=== PATIENT | female | born 1980 | race Caucasian/White ===

== ENCOUNTER 2021-03-22 17:12 | Inpatient (IN) | payer BC, SELFPAY ==
[2021-03-22] MEDS ORDERED: Norepinephrine 8 MG in Dextrose 5% in Water 242 ML IVPB PRN (17:45)
[2021-03-22] MEDS ORDERED: Lidocaine 1% w/Epinephrine 1:100K 20 ML VIAL ONE (18:19)
[2021-03-22] MEDS ORDERED: Bupivacaine PF 0.5% 30 ML VIAL ONE (18:19)
[2021-03-22] MEDS ORDERED: Vancomycin 1 GM/200 ML BAG ONE (18:39)
[2021-03-22] MEDS ORDERED: Fentanyl 100 MCG/2 ML VIAL ONE (18:56)
[2021-03-22] MEDS ORDERED: Succinylcholine 200 MG/10 ml SYRINGE FS ONE (19:24)
[2021-03-22] MEDS ORDERED: Rocuronium Bromide 10 MG/ML (10ML VIAL) ONE (19:24)
[2021-03-22] MEDS ORDERED: Ondansetron PF 4 MG/2 ML Vial ONE (19:24)
[2021-03-22] MEDS ORDERED: SUGAMMADEX SODIUM 200 MG/2 ML VIAL ONE (20:08)
[2021-03-22] MEDS ORDERED: Dextrose 5% in Water 1,000 ML IV PRN (20:39)
[2021-03-22] MEDS ORDERED: Ondansetron PF 4 MG/2 ML Vial IVP PRN (20:39)
[2021-03-22] MEDS ORDERED: Promethazine HCl 25 MG/ML VIAL IM PRN (20:39)
[2021-03-22] MEDS ORDERED: HYDROcodone/Acetaminophen 10/325 mg Tablet PO PRN ×2 (20:39)
[2021-03-22] MEDS ORDERED: Dextrose 50% Abboject 50 ML SYRINGE SLOW IVP PRN (20:39)
[2021-03-22] MEDS ORDERED: Morphine 4 MG/ML VIAL SLOW IVP PRN ×2 (20:39→20:46)
[2021-03-22] MEDS ORDERED: hydrALAZINE 20 MG/ML VIAL SLOW IVP PRN (20:39)
[2021-03-22] MEDS ORDERED: Levofloxacin 500 mg/D5W 100 ml Premix Bag IVPB SCH (21:00)
[2021-03-22] MEDS: Lactated Ringer's 1,000 ML IV SCH (22:12)
[2021-03-22] MEDS: Famotidine/PF 20 mg/2ml Vial SLOW IVP SCH (22:13)
[2021-03-22 22:14] VITALS: BMI 34.7
[2021-03-22] MEDS: Famotidine 20 MG TAB PO SCH (22:33)
[2021-03-22] MEDS: Ketorolac Tromethamine 30 MG/ML VIAL IVP SCH (23:24)
[2021-03-23] MEDS ORDERED: Pramipexole Di-HCl 1 MG TAB PO SCH ×2 (01:45→21:00)
[2021-03-23 05:27] LABS: #Eosinphils 0.1 thou/uL (0.0-0.7); #Lymphocytes 2.7 thou/uL (1.20-3.40); #Neutrophils 7.8 thou/uL (1.40-6.50); %Basophils 0.2 % (0.0-1.0); %Eosinophils 1.1 % (0.0-10.0); %Monocytes 8.5 % (0.0-10.0); %Neutrophils 67.2 % (42.0-75.0); Hemoglobin 9.5 g/dL (12.0-16.0); Mean Corpuscular HGB CONC 32.7 g/dL (32.0-36.0); Mean Corpuscular Hemoglobin 28.8 pg (27.0-31.0); Mean Corpuscular Volume 88.1 fL (78.0-98.0); Mean Platelet Volume 7.7 fL (7.4-10.4); Platelet Count 228 thou/uL (130-400); RBC Distribution Width 12.7 % (11.5-14.5); White Blood Cell (WBC) Count 11.6 thou/uL (4.8-10.8)
[2021-03-23 05:50] LABS: Anion Gap 12 mmol/L (10-20); BUN (Urea Nitrogen) 8 mg/dL (7.0-18.7); Calc. Creatinine Clearance 135 mL/min (70-130); Calcium 6.9 mg/dL (7.8-10.44); Carbon Dioxide 21 mmol/L (22-29); Chloride 107 mmol/L (98-107); Glucose 106 mg/dL (70-105); Potassium 3.8 mmol/L (3.5-5.1); Sodium 136 mmol/L (136-145)
[2021-03-23] MEDS: Ketorolac Tromethamine 30 MG/ML VIAL IVP SCH ×2 (06:04→11:31)
[2021-03-23] MEDS: Lactated Ringer's 1,000 ML IV SCH (06:05)
[2021-03-23] MEDS: Famotidine/PF 20 mg/2ml Vial SLOW IVP SCH (08:47)
[2021-03-23] MEDS: Famotidine 20 MG TAB PO SCH (08:48)
[2021-03-23] MEDS ORDERED: Venlafaxine HCl XR 150 MG CAP PO SCH (09:00)
[2021-03-23] MEDS ORDERED: Enoxaparin Sodium 40 MG/0.4 ML SYRINGE SC SCH (09:00)
[2021-03-23] MEDS ORDERED: Fenofibrate Nanocrystallized 145 MG TAB PO SCH (09:00)
[2021-03-23] MEDS ORDERED: Estradiol 1 MG TAB PO SCH (09:00)
[2021-03-23 11:22] VITALS: BP 114/77; TEMP 98.4
[2021-03-23] MEDS ORDERED: Levofloxacin 500 mg/D5W 100 ml Premix Bag IVPB SCH (13:00)
[2021-03-23] MEDS ORDERED: Atorvastatin Calcium 10 MG TAB PO SCH (21:00)
== END 2021-03-23 13:04 | disposition home or self-care (01) | DRG 357 ==
LOC: ERS 17:12 → SDC/OP 19:21 → SJJU 20:39
PROVIDERS: ADMIT Surgery; ATTEND Surgery
PROC: 0W9G4ZX Drainage of Peritoneal Cavity, Percutaneous Endoscopic Approach, Diagnostic (ICD-10-PCS; principal; 2021-03-22)
DX: R10.31 Right lower quadrant pain (principal); R18.8 Other ascites; K75.81 Nonalcoholic steatohepatitis (NASH); E66.01 Morbid (severe) obesity due to excess calories; Z68.34 Body mass index [BMI] 34.0-34.9, adult; E78.5 Hyperlipidemia, unspecified; I10 Essential (primary) hypertension; F32.A Depression, unspecified; F41.9 Anxiety disorder, unspecified; G25.81 Restless legs syndrome; Z90.710 Acquired absence of both cervix and uterus; Z90.49 Acquired absence of other specified parts of digestive tract; Z79.899 Other long term (current) drug therapy
CPT/HCPCS: 36415; 71045; 80048; 85025; 87070; 87205; J1650; J1885; J1956; J2405; J2550; J3010; J3370; J7120; S0020; S0028